=== PATIENT | female | born 1950 | race Caucasian/White ===

== ENCOUNTER → 2016-08-07 | Outpatient (CLI) | payer OTHER ==
--- NOTE | 2016-08-07 17:03 | MA ---
Screening Digital Mammogram With iCAD Analysis Clinical Indications: Routine screening. Comparison: February 2016, June 2015, May 2014, May 2013, March 2012, February 2011, 2009, December 2008. Technique: Standard cephalocaudal projections are obtained. Digital breast tomosynthesis was performe d in the MLO projection with reconstruction at 1.0 mm slice thickness and composite MLO views reconst ructed. This examination is processed by the iCAD computer aided detection system. Breast density: Type C: Heterogeneously dense. Findings: CAD was reviewed. No masses, suspicious calcifications or secondary signs of malignancy are seen. There has been no significant change in the appearance of either breast. Impression: Negative mammogram. BI-RADS 1. Recommendation: Routine mammographic screening in one year as long as physical examination is negativ e in this patient with heterogeneously dense breast parenchyma. [facility] will send a result letter to the patient. Negative mammography should not preclude additional workup of a clinically suspicious finding. The patient's information is entered into a reminder system with a target due date for her next mammo gram.
== END ==
LOC: FIMAGING 15:30
DX: Z12.31 Encounter for screening mammogram for malignant neoplasm of breast (principal)
CPT/HCPCS: G0202

== ENCOUNTER → 2017-08-20 | Outpatient (CLI) | payer OTHER | LOC: FIMAGING 15:23 | PROVIDERS: ATTEND Obstetrics & Gynecology Gynecology | DX: Z12.31 Encounter for screening mammogram for malignant neoplasm of breast (principal) ==

== ENCOUNTER 2018-02-26 | Emergency (ER) | payer OTHER | END 2018-02-26 18:48 | disposition home or self-care (01) ==

== ENCOUNTER 2018-05-16 07:03 | Emergency (ER) | payer OTHER ==
[2018-05-16] MEDS ORDERED: PROPARACAINE 0.5% 15 ML OPHT DROP ONE (07:17)
[2018-05-16] MEDS ORDERED: FLUORESCEIN SODIUM 1 MG STRIP OP ONE (07:17)
--- NOTE | 2018-05-16 08:05 | EDPHY ---
H & P Stated Complaint: visual deficit r eye noticed when awakened this morning Time Seen by Provider: 05/16/18 07:48 HPI/ROS: CHIEF COMPLAINT: Right eye blurriness HISTORY OF PRESENT ILLNESS: 67-year-old female presents with right eye blurriness. She awoke this morning with blurriness in the right eye. The blurriness has resolved somewhat, but her vision is not as clear as usual. No eye pain, discharge or recent trauma. REVIEW OF SYSTEMS: complete 10 point ROS reviewed and is negative except for the noted elements in the HPI - Personal History Current Tetanus Diphtheria and Acellular Pertussis (TDAP): Yes Tetanus Vaccine Date: 2011 - Medical/Surgical History Hx Asthma: No Hx Chronic Respiratory Disease: No Hx Diabetes: No Hx Cardiac Disease: No Hx Renal Disease: No Hx Cirrhosis: No Hx Alcoholism: No Hx HIV/AIDS: No Hx Splenectomy or Spleen Trauma: No Other PMH: med hx-anxiety,thyroid,. surg-rt knee - Social History Smoking Status: Never smoked - Physical Exam Exam: Visual Acuity: noted from Nurse's notes. Lids: no proptosis, no periorbital erythema or swelling, no vesicles Conjunctivae: No erythema, no discharge Pupils:equal round and reactive to light EOMI Cornea: Normal Anterior chamber:Streak of blood extending from the pupil horizontally to the edge of the iris in the 3 o'clock position Constitutional: Initial Vital Signs Temperature (C) 36.5 C 05/16/18 07:05 Heart Rate 71 05/16/18 07:05 Respiratory Rate 17 05/16/18 07:05 Blood Pressure 140/88 H 05/16/18 07:05 O2 Sat (%) 95 05/16/18 07:05 O2 Delivery Mode Room Air Allergies/Adverse Reactions: Quinolones Allergy (Verified 05/16/18 07:04) Home Medications: Medication Instructions Recorded Naturethyroid 07/13/15 Progesterone,Micronized 07/13/15 Verapamil 07/13/15 Wellbutrin 100mg (RX) 07/13/15 Augmentin 875 MG TAB (*) 05/16/18 Medical Decision Making ED Course/Re-evaluation: This pt presents with atraumatic anterior chamber hemorrhage and visual change. Not typical of hyphema, given location. Dr. Howard consulted and will see the pt in the office this morning. Differential Diagnosis: includes though not limited to acute iritis, hyphema, corneal abrasion, globe rupture, coagulopathy Departure - Departure Disposition: Home, Routine, Self-Care Clinical Impression: streak of blood on iris Condition: Good Instructions: Blurred Vision (ED) Referrals: Eligio Samson MD [Medical Doctor] - As per Instructions (Go directly to Dr. Howard's office. He will see you this morning.)
[2018-05-16 08:36] VITALS: BP 136/85
== END 2018-05-16 08:36 | disposition home or self-care (01) ==
DX: H53.8 Other visual disturbances (principal); E07.9 Disorder of thyroid, unspecified; F41.9 Anxiety disorder, unspecified

== ENCOUNTER → 2018-09-22 | Outpatient (CLI) | payer OTHER | LOC: FIMAGING 13:58 | PROVIDERS: ATTEND Internal Medicine | DX: Z12.31 Encounter for screening mammogram for malignant neoplasm of breast (principal) ==